=== PATIENT | female | born 1970 | race Caucasian/White ===

== ENCOUNTER → 2016-09-04 | Outpatient (CLI) | payer BC ==
--- NOTE | 2016-09-04 15:30 | DI ---
CT SINUS SCAN, 09/04/2016 3:01 PM : Clinical History: Chronic ethmoid sinusitis. Previous Exam: None at this facility. Scans are obtained from the base of the skull through the paranasal sinuses in the axial plane using very low dose with high resolution technique. Direct coronal reformatted images are generated perpend icular to the hard palate. The frontal, maxillary, ethmoid, and sphenoid sinuses are normal. The bony septum is midline. The mid dle and inferior turbinates are normal. The ostiomeatal complex bilaterally are also normal. READIN. The paranasal sinuses are normal. 2. No abnormality of the ostiomeatal complex is noted.
== END ==
LOC: CT 14:54
PROVIDERS: ATTEND Physician Assistant Medical
DX: J32.2 Chronic ethmoidal sinusitis (principal); G44.85 Primary stabbing headache
CPT/HCPCS: 70486

== ENCOUNTER → 2016-11-13 | Outpatient (CLI) | payer BC ==
[2016-11-13 18:21] LABS: HEMOGLOBIN A1C 5.32 % (4.2-6.0)
== END ==
LOC: MOB LAB 16:05
PROVIDERS: ATTEND Nurse Practitioner Women's Health
DX: R73.02 Impaired glucose tolerance (oral) (principal); E03.9 Hypothyroidism, unspecified
CPT/HCPCS: 36415; 83036; 84443